=== PATIENT | female | born 1965 | race Caucasian/White ===

== ENCOUNTER 2023-09-21 09:41 | Emergency (ER) | payer OTHER, SELFPAY ==
[2023-09-21] VITALS (17 sets, daily range): BP systolic 105–140; BP diastolic 82–90; PULSE 70–92; RESP 12–27; TEMP 36.8; O2SAT 95–100; BMI 27.8
--- NOTE | 2023-09-21 09:55 | ED_ITS ---
HPI - General Adult General Chief complaint: Chest Pain Stated complaint: CHEST PAIN LEFT SIDE Time Seen by Provider: 09/21/23 09:55 History of Present Illness HPI narrative: Patient is a 58-year-old female who is presenting with multiple complaints. Patient for a month but worse in the last week is having more shortness of breath, also acid reflux for the past week. Patient is at bedside, he thinks for the past couple days she is more swollen or bloating. Patient is fairly active, walks on a treadmill. Patient is been having more shortness of breath with walking on a treadmill this week. Patient has no recent traveling, is a non-smoker, not drinking. No significant stress anxiety at home. Patient does drink coffee but not significant amount. Patient been trying multiple home remedies to help with acid reflux in the past week with no significant changes. Patient has no headache, patient will state that she intermittently will have a heaviness to her left upper chest and in the left side of her neck she has a tingling/unusual sensation that goes to the left jaw, also last night she has been having numbness and tingling in her left arm without laying on it, this happened twice. Patient has no heavy, heavy chest pressure, currently she is asymptomatic. No abdominal pain, nausea or vomiting. No melena. No heavy lifting, twisting or turning, no recent trauma. Patient has been seeing Dr. Gallegos, patient had some type of blood pressure cuff test on her arms for the fluid up and took it down in different spots on both arms to assess something, patient does not recall what that test was. Patient's had a stress test echocardiogram 2 years ago that showed no acute findings. Patient takes no hormone therapy. No history of blood clots. Patient's family history, patient's father had heart attacks in the 50s, in early 60s where he has a past of open heart surgery/heart complications. Patient's brother had a heart attack in the 50s as well. Patient is supposed to be taking cholesterol medication, she was on a statin and had muscle cramps that she did not take any monitor. Patient is currently doing a lot of home remedies, trying to help treat her acid reflux and cholesterol. Patient has been on Lamictal in the past, she is currently not. Patient is cut her Wellbutrin dose in half. episodes All systems are negative except as noted/marked. All systems reviewed and otherwise negative. Nurses note and vital signs reviewed and patient is not hypoxic. General: The patient appears well and in no apparent distress. Patient is resting comfortably on cart. Patient is not toxic, lethargic, or listless Skin: Warm, dry, no pallor noted. There is no rash noted. No petechiae, purpura. Head: Normocephalic, atraumatic; no midline or paracervical tenderness to palpation. Full range of motion of cervical spine no difficulty. Eye: Normal conjunctiva, no drainage, EOMI. PERRL Ears, Nose, Mouth, and Throat: oral mucosa is moist. Nares patent. Mouth without vesicles. Cardiovascular: Regular Rate and Rhythm, no murmur, gallop, no reproducible tenderness to palpation; no rash. Respiratory: Patient is in no distress, no accessory muscle use, lungs are clear to auscultation, no wheezing, rales or rhonchi Back: non-tender, no CVA tenderness bilaterally to percussion. No CT LS midline pain GI: no tenderness to palpation, no masses appreciated. No rebound, guarding, or rigidity noted. No distention Musculoskeletal: Patient has full range of motion of all of the extremities, no motor, sensory, or focal neurological deficits. No pitting edema to bilateral lower extremities Neurological: A&O x4, normal speech Psychiatric: Cooperative Related Data Home Medications Medication Instructions Recorded Confirmed bupropion HCl 150 mg tablet,12 hr 150 mg PO DAILY 09/21/23 09/21/23 sustained-release (Wellbutrin SR) levothyroxine 50 mcg capsule 50 mcg PO DAILY 09/21/23 09/21/23 montelukast 10 mg tablet 10 mg PO DAILY 09/21/23 09/21/23 (Singulair) Previous Rx's Medication Instructions Recorded pantoprazole 40 mg tablet,delayed 40 mg PO DAILY 10 days #10 tabs 09/21/23 release (Protonix) sucralfate 100 mg/mL oral 10 ml PO Q6H PRN acid reflux 4 09/21/23 suspension (Carafate) weeks #300 mL Allergies Allergy/AdvReac Type Severity Reaction Status Date / Time No Known Drug Allergies Allergy Verified 09/21/23 09:53 Exam Constitutional Vital Signs, click to edit/add: Last Vital Signs Temp 98.2 F 09/21/23 09:53 Pulse 80 09/21/23 12:00 Resp 13 09/21/23 12:00 BP 105/82 09/21/23 11:14 Pulse Ox 97 09/21/23 12:00 O2 Del Method Room Air 09/21/23 09:53 Course Vital Signs Vital signs: Vital Signs Blood Pressure 140/90 09/21/23 09:47 Pulse Oximetry 97 09/21/23 09:47 Temperature 98.2 F 09/21/23 09:53 Pulse Rate 80 09/21/23 12:00 Respiratory Rate 13 09/21/23 12:00 Blood Pressure 105/82 09/21/23 11:14 Pulse Oximetry 97 09/21/23 12:00 Oxygen Delivery Method Room Air 09/21/23 09:53 Medical Decision Making MDM Narrative Medical decision making narrative: Patient's heart score is 3. Patient's EKG shows T wave inversion in lead III, aVF, nonspecific ST changes. We have no old EKG to compare this to, call patient's PCP office, Dr. Chang, and they are closed on Fridays. Patient D-dimer, BNP, troponin, lab work shows no acute findings. Patient chest x-ray was negative. Patient has a heart score 3. Education was done at bedside of following up and establishing PCP, patient was also referred to cardiology and also referred to GI specialist for EGD if indicated. A copy of patient's EKG was given to her, I explained the EKG findings to her and her at bedside. Patient was very thankful for help and care today, patient has not had any significant chest heaviness in the ER today, she has had some mild heartburn after aspirin was given, that subsided shortly. Patient's symptoms have been going on for months, worse in the past week. Patient feels comfortable going home, thankful for time spent at bedside with education from Renetta ROGEL and Dr Mccann. Lab Data Labs: Lab Results 09/21/23 Range/Units 09:58 D-Dimer <0.19 (<=0.59) mg/L FEU Troponin I High Sens <4.0 L (4.0-51.3) pg/mL NT-Pro-B Natriuret Pep 83.0 (<=900.0) pg/mL Lipase 24.0 (16.0-77.0) U/L ECG Data Attestation: I personally reviewed and interpreted this ECG as follows: (EKG interpretation. Normal sinus rhythm at 87 beats a minute. Normal axis deviation. No acute ST elevation, no acute ectopy. QTc of 394. Patient has T wave inversion in lead III, aVF; nonspecific ST changes) Discharge Plan Discharge Chief Complaint: Chest Pain Clinical Impression: Dyspnea, GERD (gastroesophageal reflux disease), Chest pain Patient Disposition: Home, Self-Care Time of Disposition Decision: 12:52 Condition: Fair Prescriptions / Home Meds: New pantoprazole [Protonix] 40 mg tablet,delayed release (DR/EC) 40 mg PO DAILY 10 Days Qty: 10 0RF sucralfate [Carafate] 100 mg/mL suspension 10 ml PO Q6H PRN (Reason: acid reflux) 28 Days Qty: 300 0RF Rx Instructions: 10ml 30 minutes before meals, and at bedtime as needed for acid re flux/gastritis No Action levothyroxine 50 mcg capsule 50 mcg PO DAILY bupropion HCl [Wellbutrin SR] 150 mg tablet sustained-release 12 hr 150 mg PO DAILY Patient Comments: patient only takes 75mg daily montelukast [Singulair] 10 mg tablet 10 mg PO DAILY Patient Comments: pt only takes during allergy season Instructions: Chest Pain (ED), GERD (Gastroesophageal Reflux Disease) (ED), Dyspnea (ED) Additional Instructions: Dr Hodge is the 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 Calvo is on-call for surgery and is able to perform EGDs if needed. Both names have been given to you to call and follow-up. If you are having any type of acid reflux or flareup, only use Maalox or Mylanta to help with pain. Start taking Protonix daily. Use Carafate before meals and at bedtime if needed to help with acid reflux or heartburn. You will need to have a follow-up stress test, echocardiogram, and further testing as indicated to rule out any cardiac pathology Stand Alone Forms: Portal Instructions Referrals: Emmanuelle Hodge MD [Physician] - 1 week Abel Calvo MD [Physician] - 1 week Physician,Non-MD Zain [Physician] - 1 week Discharge Date/Time: 09/21/23 13:06
--- NOTE | 2023-09-21 10:10 | XR_ITS ---
The [address] [address] Patient Name: ERIK MACHADO MRN: [id number] date: 1965 Sex: F Assigned Patient Location: ER Current Patient Location: ER Accession/Order Number: [id number] Exam Date: 09/21/2023 10:40 Report Date: 09/21/2023 10:56 At the request of: MARY MARIA Procedure: XR chest 2V EXAM: Chest x-ray HISTORY: . sob . COMPARISON: None. TECHNIQUE: Single view of the chest FINDINGS: Heart and vascularity are unremarkable. Lungs are free of focal infiltrates. EKG leads overlie the chest. XR/XR chest 2V IMPRESSION: No acute heart or lung disease identified. Electronically authenticated by: JOEY LEE Date: 09/21/2023 10:56
[2023-09-21] MEDS: ASPIRIN 81 MG TAB.CHEW 162 MG PO (10:25)
[2023-09-21 10:40] LABS: D Dimer <0.19 mg/L FEU (<=0.59)
[2023-09-21 11:50] LABS: Troponin I High Sensitivity <4.0 pg/mL (4.0-51.3)
--- NOTE | 2023-09-21 21:45 | ECG_ITS ---
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
== END 2023-09-21 13:06 | disposition home or self-care (01) ==
PROVIDERS: Emergency Provider Emergency Medicine; PCP Internal Medicine
DX: R07.9 Chest pain, unspecified (principal); R06.00 Dyspnea, unspecified; K21.9 Gastro-esophageal reflux disease without esophagitis; Z79.899 Other long term (current) drug therapy; Z79.890 Hormone replacement therapy
CPT/HCPCS: 36415; 71046; 81001; 83690; 83880; 84484; 85378; 93005; 99284

== ENCOUNTER 2023-10-01 10:32 | Outpatient (OUT) | payer OTHER, SELFPAY ==
[2023-10-01 10:50] LABS: Basophils Percent Auto 0.8 % (0.2-2.0); Eosinophils Absolute Auto 0.3 10^3/uL (0.0-0.7); Eosinophils Percent Auto 6.6 % (0.9-7.0); Immature Granulocytes Abs Auto 0.01 10^3/uL (0.00-0.03); Immature Granulocytes Pct Auto 0.2 % (0.0-0.5); Lymphocytes Absolute Auto 1.6 10^3/uL (1.2-3.8); Lymphocytes Percent Auto 32.5 % (20.5-60.0); Mean Corpuscular HGB Conc 32.5 g/dL (29.9-35.2); Mean Corpuscular Hemoglobin 29.3 pg (26.7-34.0); Mean Corpuscular Volume 90.3 fL (81.0-99.0); Mean Platelet Volume 8.9 fL (9.5-13.5); Monocytes Absolute Auto 0.4 10^3/uL (0.3-0.8); Monocytes Percent Auto 8.4 % (1.7-12.0); Neutrophils Absolute Auto 2.5 10^3/uL (1.4-6.5); Neutrophils Percent Auto 51.5 % (43.0-75.0); Platelet Count 229 10^3/uL (150-450); Red Blood Count 4.43 10^6/uL (4.20-5.40); Red Cell Distribution Width 12.2 % (11.0-15.0); White Blood Count 4.9 10^3/uL (4.0-11.0)
[2023-10-01 11:51] LABS: Alanine Aminotransferase 39 U/L (14-59); Albumin Level 3.6 g/dL (3.4-5.0); Alkaline Phosphatase 97 U/L (46-116); Anion Gap 12.9; Aspartate Amino Transferase 20 U/L (15-37); BUN Creatinine Ratio 19.1; Bilirubin Total 0.6 mg/dL (0.2-1.0); Calcium 9.1 mg/dL (8.5-10.1); Carbon Dioxide 29.4 mmol/L (21.0-32.0); Chloride 104 mmol/L (98-107); Estimated GFR (African America >60 (>=60); Estimated GFR (Non-African Ame >60 (>=60); Globulin 3.5 g/dL; Glucose 91 mg/dL (74-106); Potassium 4.3 mmol/L (3.5-5.1); Sodium 142 mmol/L (136-145); Thyroid Stimulating Hormone 2.371 uIU/mL (0.358-3.740); Total Protein 7.1 g/dL (6.4-8.2)
[2023-10-01 11:53] LABS: Free T4 0.99 ng/dL (0.76-1.46)
[2023-10-01 12:28] LABS: Chol HDL Ratio 3.4; Cholesterol 281 mg/dL (<=200); HDL Cholesterol 83 mg/dL (40-60); Triglycerides 71 mg/dL (<=150); VLDL CHOLESTEROL 14.2 mg/dL
== END 2023-10-01 10:33 | disposition home or self-care (01) ==
LOC: LAB 10:34
PROVIDERS: PCP Family Medicine; Visit Provider Internal Medicine Interventional Cardiology
DX: Z00.00 Encounter for general adult medical examination without abnormal findings (principal)
CPT/HCPCS: 36415; 80053; 80061; 84439; 84443; 85025